=== PATIENT | male | born 1995 | race American Indian/Alaskan Native ===

== ENCOUNTER 2017-12-06 17:16 | Emergency (ER) | payer BC ==
--- NOTE | 2017-12-06 17:41 | EDM.PDOC ---
ED HPI GENERAL MEDICAL PROBLEM - General Chief Complaint: Back Pain or Injury Stated Complaint: PT HAS NUMBNESS IN LT LEG Time Seen by Provider: 12/06/17 17:33 - History of Present Illness INITIAL COMMENTS - FREE TEXT/NARRATIVE: HISTORY AND PHYSICAL: History of present illness: Patient's a 22-year-old white male presents with a concern of intermittent paresthesia of his left lower extremity denies any specific pain there's been no trauma this been going on for the better part of 4 weeks and somewhat intermittent but no incontinence or retention of bowel or bladder and denies any other neurological signs or symptoms the distribution of this numbness appears to be sciatic in distribution Review of systems: As per history of present illness and below otherwise all systems reviewed and negative. Past medical history: As per history of present illness and as reviewed below otherwise noncontributory. Surgical history: As per history of present illness and as reviewed below otherwise noncontributory. Social history: No reported history of drug or alcohol abuse. Family history: As per history of present illness and as reviewed below otherwise noncontributory. Physical exam: HEENT: Atraumatic, normocephalic, pupils reactive, negative for conjunctival pallor or scleral icterus, mucous membranes moist, throat clear, neck supple, nontender, trachea midline. Lungs: Clear to auscultation, breath sounds equal bilaterally, chest nontender. Heart: S1S2, regular, negative for clicks, rubs, or JVD. Abdomen: Soft, nondistended, nontender. Negative for masses or hepatosplenomegaly. Negative for costovertebral tenderness. Pelvis: Stable nontender. Genitourinary: Deferred. Rectal: Deferred. Extremities: Atraumatic, negative for cords or calf pain. Neurovascular unremarkable. Neuro: Awake, alert, oriented. Cranial nerves II through XII unremarkable. Cerebellum unremarkable. Motor and sensory unremarkable throughout. Exam nonfocal. Diagnostics: X-ray lumbar spine Therapeutics: None Impression: #1 intermittent paresthesia left lower extremity etiology to be determined Definitive disposition and diagnosis as appropriate pending reevaluation and review of above. - Related Data Allergies Allergy/AdvReac Type Severity Reaction Status Date / Time No Known Allergies Allergy Verified 12/06/17 17:35 Home Meds: Home Meds . [No Known Home Meds] 12/06/17 [History] Past Medical History - Past Health History Medical/Surgical History: Denies Medical/Surgical History Gastrointestinal History: Reports: Other (See Below) Other Gastrointestinal History: fatty liver diasease Immunologic History: Reports: None Social & Family History - Family History Family Medical History: Noncontributory - Tobacco Use Smoking Status *Q: Never Smoker - Caffeine Use Caffeine Use: Reports: None - Recreational Drug Use Recreational Drug Use: No ED ROS GENERAL - Review of Systems Review Of Systems: ROS reveals no pertinent complaints other than HPI. ED EXAM, GENERAL - Physical Exam Exam: See Below (See dictation) Course - Vital Signs Last Recorded V/S: Last Vital Signs Temp 36.4 C 12/06/17 17:28 Pulse 78 12/06/17 17:28 Resp 18 12/06/17 17:28 BP 130/64 12/06/17 17:28 Pulse Ox 100 12/06/17 17:28 - Orders/Labs/Meds Orders: Active Orders 24 hr Category Date Time Status Lumbar Spine 2 or 3V [CR] Stat Exams 12/06/17 17:35 Ordered Departure - Departure Time of Disposition: 17:38 Disposition: Home, Self-Care 01 Condition: Good Clinical Impression: Paresthesia - Discharge Information *PRESCRIPTION DRUG MONITORING PROGRAM REVIEWED*: Not Applicable *COPY OF PRESCRIPTION DRUG MONITORING REPORT IN PATIENT JACOBO: Not Applicable Referrals: PCP,None [Primary Care Provider] - Additional Instructions: The following information is given to patients seen in the emergency department who are being discharged to home. This information is to outline your options for follow-up care. We provide all patients seen in our emergency department with a follow-up referral. The need for follow-up, as well as the timing and circumstances, are variable depending upon the specifics of your emergency department visit. If you don't have a primary care physician on staff, we will provide you with a referral. We always advise you to contact your personal physician following an emergency department visit to inform them of the circumstance of the visit and for follow-up with them and/or the need for any referrals to a consulting specialist. The emergency department will also refer you to a specialist when appropriate. This referral assures that you have the opportunity for followup care with a specialist. All of these measure are taken in an effort to provide you with optimal care, which includes your followup. Under all circumstances we always encourage you to contact your private physician who remains a resource for coordinating your care. When calling for followup care, please make the office aware that this follow-up is from your recent emergency room visit. If for any reason you are refused follow-up, please contact the [facility] emergency department at and asked to speak to the emergency department charge nurse. [facility] [address] [place] [address] [id number] [facility] - Neurology Professional Building [address] [place] [address], [address] [place] [address] Medrol as prescribed diclofenac as prescribed call to schedule appointments with primary care in neurology above as discussed return as needed as discussed - My Orders Last 24 Hours: My Active Orders 12/06/17 17:35 Lumbar Spine 2 or 3V [CR] Stat - Assessment/Plan Last 24 Hours: My Active Orders 12/06/17 17:35 Lumbar Spine 2 or 3V [CR] Stat
--- NOTE | 2017-12-07 16:13 | CR ---
EXAM DATE: 12/06/17 PATIENT'S AGE: 22 Patient: HENRI SANDOVAL Facility: [place], [place] Site . Site : 1995 Study: XRay Spine Lumbar [id number] 6:16:29 PM Ordering Physician: Miller Buckner Final Report: Indication: Pain. Technique: Three views of the lumbar spine were obtained. Comparison: None Findings: The alignment of the lumbar spine is within normal limits. The vertebral body heights are well maintained. Mild intervertebral disc space narrowing is identified at L5-S1. No acute fracture or subluxation is identified. Impression: Mild degenerative change of the lower lumbar spine. Dictated by Nata Garcia MD @ Dec 06 2017 6:26PM (Electronic Signature) Report Signed by Proxy. SHABANA
== END 2017-12-06 19:11 | disposition home or self-care (01) ==
LOC: MW.ED 17:16
DX: R20.2 Paresthesia of skin (principal)
CPT/HCPCS: 72100; 72100-26; 99283